=== PATIENT | female | born 1990 | race Caucasian/White ===

== ENCOUNTER 2019-08-18 10:25 | Emergency (ER) | payer SELFPAY ==
--- NOTE | 2019-08-18 11:04 | ED.PDOC ---
History of Present Illness - General Chief Complaint: ENT Problem Stated Complaint: Sore throat Time Seen by Provider: 08/18/19 11:01 Source: patient Additional Information: 29yo F presents with sore throat. Pt reports hx of similar symptoms in the past with strep throat. She denies cough or fever. No known sick contacts. No other reported issues. - History of Present Illness Timing/Duration: yesterday Allergies/Adverse Reactions: Allergies NO KNOWN ALLERGY Allergy (Verified 08/18/19 10:41) Home Medications: Ambulatory Orders NK 08/18/19 Review of Systems - Review of Systems Constitutional: Denies: chills, fever EENTM: States: no symptoms reported, throat pain. Denies: eye pain Respiratory: Denies: cough, short of breath Cardiology: Denies: chest pain, palpitations Gastrointestinal/Abdominal: Denies: abdominal pain, diarrhea, nausea, vomiting Genitourinary: Denies: dysuria, hematuria Musculoskeletal: States: no symptoms reported Skin: States: no symptoms reported Neurological: Denies: headache, numbness, weakness Endocrine: States: no symptoms reported Hematologic/Lymphatic: States: no symptoms reported Past Medical History (General) - Patient Medical History Hx Stroke: No Hx of COPD: No Hx Cardiac Disorders: No Hx Hypertension: No Hx Diabetes: No Hx Cancer: No Surgical History: no surgical history - Vaccination History Hx Tetanus, Diphtheria Vaccination: No Hx Influenza Vaccination: No Hx Pneumococcal Vaccination: No Immunizations Up to Date: No - Social History Hx Tobacco Use: Yes Hx Alcohol Use: No Hx Substance Use: No Hx Substance Use Treatment: No Hx Depression: No - Female History Patient is a Female of Child Bearing Age (10 -59 yrs old): Yes Patient : No - Denies Family Medical History - Family History Maternal Grandparents Living Status: Hx Family Stroke: Yes Hx Cardiac Disease: Yes Physical Exam - Physical Exam General Appearance: Alert, No apparent distress Eye Exam: bilateral normal Ear Exam: bilateral ear: auricle normal Nasal Exam: normal inspection Throat Exam: tonsillar exudate, tonsillar swelling, other - No voice change. +pharyngeal erythema. Neck: non-tender, full range of motion, supple Cardiovascular/Respiratory: regular rate, rhythm, no M/R/G, normal peripheral pulses Abdominal Exam: non-tender, no hernia Neurologic: no motor/sensory deficits, alert Skin Exam: normal color, warm/dry Progress - Progress Progress: 08/18/19 11:22 PT has findings consistent with pharyngitis. Results discussed. Return warnings given. It was a pleasure to care for this patient today. 08/18/19 11:23 David Juarez MD. #[id number] - Results/Orders Results/Orders: 08/18/19 10:38 STREP SCREEN [GROUP A STREP SCREEN, RAPID] Stat Laboratory Results - last 24 hr 08/18/19 10:38 Group A Strep Rapid Negative Departure - Departure Clinical Impression: Acute pharyngitis Qualifiers: Pharyngitis/tonsillitis etiology: unspecified etiology Qualified Code(s): J02.9 - Acute pharyngitis, unspecified Time of Disposition: 11:04 Disposition: Discharge to Home or Self Care Condition: Good Departure Forms: ED Discharge - Pt. Copy, Patient Portal Self Enrollment Instructions: Sore Throat, Adult (DC) Home Medications: Ambulatory Orders NK 08/18/19
[2019-08-18] MEDS ORDERED: PENICILLIN BENZATHINE 1.2 MU 1.2 MU/2 ML SYG IM ONE (11:05)
[2019-08-18 11:48] VITALS: BP 115/76; TEMP 98.6; O2SAT 98
== END 2019-08-18 11:48 | disposition home or self-care (01) ==
LOC: ER 10:25
DX: J02.9 Acute pharyngitis, unspecified (principal); Z87.891 Personal history of nicotine dependence
CPT/HCPCS: 87070; 87880; J0561